=== PATIENT | female | born 1985 | race Two or more races ===

== ENCOUNTER → 2016-09-10 | Outpatient (CLI) | payer SELFPAY ==
[2015-09-16 05:23] VITALS: BP 115/57
[~2016-09-10] MED LIST: IOHEXOL 240 MG/ML 50ML VIAL. PO ONE; IOHEXOL 300 MG/ML 75 ML VIAL IV ONE; PNV1TABL25 PO
--- NOTE | 2016-09-10 14:59 | RAD ---
INDICATION: Ventral abdominal wall hernia COMPARISON: None. TECHNIQUE: Axial CT images were obtained through the abdomen and pelvis with intravenous contrast. Coronal reformations were processed. FINDINGS: Abdomen: Chest Base: Partially imaged without gross abnormality. Vessels: No abdominal aortic aneurysm. Liver/Biliary: Low-attenuation of liver. Pancreas: No gross abnormality. Spleen: Normal. Kidneys/Adrenal: No hydronephrosis. GI: Appendix is not grossly dilated. No dilated loops of bowel suggest obstruction. There is a ventral abdominal wall hernia with loops of nonobstructed bowel extending into it. The hernia neck measures approximately 8 cm and the hernia sac measures approximately 97 x 70 mm Pelvis: Bladder: Partially distended without gross abnormality. 22 mm cystic structure left adnexa. IMPRESSION: 1. Ventral abdominal wall hernia is identified with loops of bowel extending into it. There is also some trace edema and fluid within it. 2. Small fat-containing umbilical hernia. 3. There is low-attenuation of liver. Nonspecific but can be seen with fatty infiltration. 4. Uterus has a bulbous appearance near the fundus. Cannot exclude fibroid. There is also small cystic structure in left adnexa, could be dominant follicle. PQRS Compliance Statement: One or more of the following individualized dose reduction techniques were utilized for this examination: 1. Automated exposure control 2. Adjustment of the mA and/or kV according to patient size 3. Use of iterative reconstruction technique
== END | disposition home or self-care (01) ==
LOC: CT 11:19
PROVIDERS: ATTEND Specialist
DX: D25.9 Leiomyoma of uterus, unspecified (principal); K42.9 Umbilical hernia without obstruction or gangrene; N32.89 Other specified disorders of bladder
CPT/HCPCS: 74177; Q9966; Q9967

== ENCOUNTER 2016-11-15 10:04 | Observation (INO) | payer SELFPAY ==
[~2016-11-15] VITALS: Ht 157.5 cm; Wt 120.2 kg
[~2016-11-15 10:04] MED LIST changes: +FENTANYL PF 100 MCG/2 ML VIAL. IV PRN; +HYDROMORPHONE 2 MG/ML VIAL. IV PRN; -IOHEXOL 240 MG/ML 50ML VIAL. PO ONE; -IOHEXOL 300 MG/ML 75 ML VIAL IV ONE; +IV RINGERS,LACTATED 1000ML 1,000 ML IV SCH; +LIDOCAINE 1% 1 ML SYRINGE. ID PRN; +MORPHINE SULFATE 2 MG/ML DISP.SYRIN. IV PRN; +ONDANSETRON PF 4 MG/2 ML VIAL. IV PRN; +PROCHLORPERAZINE 10 MG/2 ML VIAL. IV PRN
[2016-11-15 10:37] LABS: NEG OBC UR NEG; POS OBC UR POS
[2016-11-15 10:58] LABS: BASO # 0.1 x10^3/uL (0.0-0.2); BASO % 1 % (0-3); EOS % 3 % (0-3); HEMATOCRIT 32.9 % (36.0-47.0); LYMPH # 2.4 x10^3/uL (1.0-4.8); LYMPH % 25 % (24-48); MEAN CORPUSCULAR HEMOGLOBIN 26 pg (25-35); MEAN CORPUSCULAR HGB CONC 34 g/dL (31-37); MEAN CORPUSCULAR VOLUME 77 fL (79-100); MONO % 4 % (0-9); NEUT % 67 % (31-73); PLATELET COUNT 258 x10^3/uL (140-400); RED BLOOD COUNT 4.29 x10^6/uL (3.50-5.40); RED CELL DISTRIBUTION WIDTH 15.8 % (11.5-14.5); WHITE BLOOD COUNT 9.5 x10^3/uL (4.0-11.0)
[2016-11-15 11:06] LABS: INR 1.1 (0.8-1.1); PROTHROMBIN TIME PATIENT 13.5 SEC (11.7-14.0)
[2016-11-15 11:08] LABS: CALCIUM 8.6 mg/dL (8.5-10.1); CREATININE 0.7 mg/dL (0.6-1.0); POTASSIUM 3.9 mmol/L (3.5-5.1)
[2016-11-15 11:16] LABS: ALBUMIN 3.3 g/dL (3.4-5.0); ALBUMIN/GLOBULIN RATIO 0.8 (1.0-1.7); TOTAL BILIRUBIN 0.6 mg/dL (0.2-1.0); TOTAL PROTEIN 7.6 g/dL (6.4-8.2)
[2016-11-15] MEDS ORDERED: SEVOFLURANE 61 TO 120 MINUTES. IH ONE (11:40)
[2016-11-15] MEDS ORDERED: MIDAZOLAM HCL/PF 2 MG/2 ML VIAL. ONE ×2 (11:42→11:59)
[2016-11-15] MEDS ORDERED: ROCURONIUM 50 MG/5 ML VIAL. ONE ×2 (11:42→13:19)
[2016-11-15] MEDS ORDERED: NEOSTIGMINE METHYLSULFATE 5 MG/5 ML SYRINGE. ONE (11:42)
[2016-11-15] MEDS ORDERED: DEXAMETHASONE SOD PHOS 20 MG/5 ML VIAL. ONE (11:42)
[2016-11-15] MEDS ORDERED: FENTANYL PF 100 MCG/2 ML VIAL. ONE ×2 (11:42→14:17)
[2016-11-15] MEDS ORDERED: GLYCOPYRROLATE 1 MG/5 ML VIAL. ONE (11:42)
[2016-11-15] MEDS ORDERED: KETOROLAC 60 MG/2 ML INJ FOR OR. ONE (11:42)
[2016-11-15] MEDS ORDERED: PROPOFOL 20 ML IV ONE (11:42)
[2016-11-15] MEDS ORDERED: ONDANSETRON PF 4 MG/2 ML VIAL. ONE (11:43)
[2016-11-15] MEDS ORDERED: LIDOCAINE 2% 100 MG/5 ML SYRINGE. ONE (11:43)
[2016-11-15] MEDS ORDERED: BUPIVACAINE MPF 0.5% 30 ML VIAL. ONE (11:59)
--- NOTE | 2016-11-15 12:00 | PDOC ---
SURGICAL PROGRESS NOTE Subjective Op Note: Surgeon............................................Tyler Pre op diag.......................................incarcerate ventral/ incisional hernia Post op diag.....................................same Anesthesia.......................................general Procedure........................................Repair incarcerated Incisional hernia with mesh Drains.............................................none Blood loss.......................................30cc Fluids.............................................see anesthesia sheet Condition........................................satisfactory Vital Signs Vital Signs Date Time Temp Pulse Resp B/P Pulse Ox O2 Delivery O2 Flow Rate FiO2 11/15/16 10:35 97.3 72 20 138/56 98 Room Air 97.3 Labs Laboratory Tests Test 11/15/16 10:21 11/15/16 10:50 Urine Test Negative (NEG) White Blood Count 9.5x10^3/uL (4.0-11.0) Red Blood Count 4.29x10^6/uL (3.50-5.40) Hemoglobin 11.0g/dL (12.0-15.5) Hematocrit 32.9% (36.0-47.0) Mean Corpuscular Volume 77fL (79-100) Mean Corpuscular Hemoglobin 26pg (25-35) Mean Corpuscular Hemoglobin Concent 34g/dL (31-37) Red Cell Distribution Width 15.8% (11.5-14.5) Platelet Count 258x10^3/uL (140-400) Neutrophils (%) (Auto) 67% (31-73) Lymphocytes (%) (Auto) 25% (24-48) Monocytes (%) (Auto) 4% (0-9) Eosinophils (%) (Auto) 3% (0-3) Basophils (%) (Auto) 1% (0-3) Neutrophils # (Auto) 6.4x10^3uL (1.8-7.7) Lymphocytes # (Auto) 2.4x10^3/uL (1.0-4.8) Monocytes # (Auto) 0.4x10^3/uL (0.0-1.1) Eosinophils # (Auto) 0.3x10^3/uL (0.0-0.7) Basophils # (Auto) 0.1x10^3/uL (0.0-0.2) Prothrombin Time 13.5SEC (11.7-14.0) Prothromb Time International Ratio 1.1 (0.8-1.1) Sodium Level 140mmol/L (136-145) Potassium Level 3.9mmol/L (3.5-5.1) Chloride Level 104mmol/L (98-107) Carbon Dioxide Level 29mmol/L (21-32) Anion Gap 7 (6-14) Blood Urea Nitrogen 10mg/dL (7-20) Creatinine 0.7mg/dL (0.6-1.0) Estimated GFR (Cockcroft-Gault) 97.0 BUN/Creatinine Ratio 14 (6-20) Glucose Level 108mg/dL (70-99) Calcium Level 8.6mg/dL (8.5-10.1) Total Bilirubin 0.6mg/dL (0.2-1.0) Aspartate Amino Transf (AST/SGOT) 35U/L (15-37) Alanine Aminotransferase (ALT/SGPT) 44U/L (14-59) Alkaline Phosphatase 96U/L (46-116) Total Protein 7.6g/dL (6.4-8.2) Albumin 3.3g/dL (3.4-5.0) Albumin/Globulin Ratio 0.8 (1.0-1.7) Laboratory Tests Test 11/15/16 10:21 11/15/16 10:50 Urine Test Negative (NEG) White Blood Count 9.5x10^3/uL (4.0-11.0) Red Blood Count 4.29x10^6/uL (3.50-5.40) Hemoglobin 11.0g/dL (12.0-15.5) Hematocrit 32.9% (36.0-47.0) Mean Corpuscular Volume 77fL (79-100) Mean Corpuscular Hemoglobin 26pg (25-35) Mean Corpuscular Hemoglobin Concent 34g/dL (31-37) Red Cell Distribution Width 15.8% (11.5-14.5) Platelet Count 258x10^3/uL (140-400) Neutrophils (%) (Auto) 67% (31-73) Lymphocytes (%) (Auto) 25% (24-48) Monocytes (%) (Auto) 4% (0-9) Eosinophils (%) (Auto) 3% (0-3) Basophils (%) (Auto) 1% (0-3) Neutrophils # (Auto) 6.4x10^3uL (1.8-7.7) Lymphocytes # (Auto) 2.4x10^3/uL (1.0-4.8) Monocytes # (Auto) 0.4x10^3/uL (0.0-1.1) Eosinophils # (Auto) 0.3x10^3/uL (0.0-0.7) Basophils # (Auto) 0.1x10^3/uL (0.0-0.2) Prothrombin Time 13.5SEC (11.7-14.0) Prothromb Time International Ratio 1.1 (0.8-1.1) Sodium Level 140mmol/L (136-145) Potassium Level 3.9mmol/L (3.5-5.1) Chloride Level 104mmol/L (98-107) Carbon Dioxide Level 29mmol/L (21-32) Anion Gap 7 (6-14) Blood Urea Nitrogen 10mg/dL (7-20) Creatinine 0.7mg/dL (0.6-1.0) Estimated GFR (Cockcroft-Gault) 97.0 BUN/Creatinine Ratio 14 (6-20) Glucose Level 108mg/dL (70-99) Calcium Level 8.6mg/dL (8.5-10.1) Total Bilirubin 0.6mg/dL (0.2-1.0) Aspartate Amino Transf (AST/SGOT) 35U/L (15-37) Alanine Aminotransferase (ALT/SGPT) 44U/L (14-59) Alkaline Phosphatase 96U/L (46-116) Total Protein 7.6g/dL (6.4-8.2) Albumin 3.3g/dL (3.4-5.0) Albumin/Globulin Ratio 0.8 (1.0-1.7) SCOTT OLGUIN MD Nov 15, 2016 12:00
[2016-11-15] MEDS ORDERED: BUPIVACAINE-EPI 0.5%-1:200000 50 ML VIAL. ONE (12:24)
[2016-11-15] MEDS: CEFAZOLIN 1GM IVPB FOR OMNI 50 ML IV PRN ×2 (12:35→14:00)
[2016-11-15] MEDS: METRONIDAZOLE 500mg PREMIX 100 ML IV PRN ×2 (12:51→14:24)
[2016-11-15] MEDS ORDERED: PHENYLEPHRINE in 0.9% NACL PF 1 MG/10 ML DISP.SYRIN. IV ONE (12:54)
[2016-11-15] MEDS ORDERED: METRONIDAZOLE PREMIX 500 MG/100 ML BAG. IV ONE (13:42)
[2016-11-15] MEDS ORDERED: CEFAZOLIN 1GM IVPB FOR OMNI 50 ML IV ONE ×2 (13:42→14:15)
[2016-11-15] MEDS ORDERED: METRONIDAZOLE 500mg PREMIX 100 ML IV ONE (14:15)
[2016-11-15] MEDS ORDERED: DIPHENHYDRAMINE 50 MG/ML VIAL. IV PRN (14:15)
[2016-11-15] MEDS ORDERED: NALOXONE 0.4 MG/ML VIAL. IV PRN (14:15)
[2016-11-15] MEDS ORDERED: NALBUPHINE 10 MG/ML AMPUL. IV PRN (14:15)
[2016-11-15] MEDS ORDERED: DESFLURANE > 120 MINUTES IH ONE (14:34)
[2016-11-15] MEDS: ROPIVACAINE 0.5% EP PRN ×3 (15:54→23:17)
[2016-11-15] MEDS: FENTANYL EP PRN ×3 (15:54→23:17)
[2016-11-15] MEDS: NORMAL SALINE EP PRN ×3 (15:54→23:17)
[2016-11-15] MEDS: [UNRECOGNIZED DRUG - OTHER] EP PRN ×3 (15:54→23:17)
[2016-11-15] MEDS ORDERED: KETOROLAC 15 MG/ML VIAL. IV PRN (16:00)
[2016-11-15] MEDS ORDERED: 0.9 % SODIUM CHLORIDE 10 ML DISP.SYRIN. IV PRN (16:00)
[2016-11-15 17:18] VITALS: BP 105/54
[2016-11-15] MEDS: POTASSIUM CL 20MEQ-0.45% NACL 1,000 ML IV SCH ×2 (17:47→20:46)
[2016-11-15 19:15] VITALS: BP 118/60
[2016-11-15 20:31] VITALS: BP 115/54
[2016-11-15] MEDS: FAMOTIDINE 20 MG/2 ML VIAL IVP SCH (20:46)
[2016-11-15] MEDS: CEFAZOLIN SODIUM 1 GM in IV NORMAL SALINE 50ML 50 ML IV SCH (20:46)
[2016-11-15 21:18] VITALS: BP 116/57
[2016-11-15 23:01] VITALS: BP 113/56
[2016-11-16] VITALS (7 sets, daily range): BP systolic 97–145; BP diastolic 52–69
--- NOTE | 2016-11-16 04:15 | OP ---
DATE OF SURGERY: 11/15/2016 SURGEON: Shane Olguin MD PREOPERATIVE DIAGNOSIS: Incarcerated ventral hernia. POSTOPERATIVE DIAGNOSIS: Incarcerated ventral hernia. ANESTHESIA: General. PROCEDURE: Repair of incarcerated ventral hernia with Seprafilm coated ____ mesh. TECHNIQUE: Under general anesthesia, the patient was properly prepped and draped in the routine fashion. The hernia was below the umbilicus and midway between the pubis and the umbilicus in the midline where the patient had had a section 3 times. No sutures were found during the procedure from the old surgical site. An incision was made using a 15 blade making certain not to go through the skin that was very tenuous and thin at the portion where the hernia had become protruding. We were very careful as we knew we quickly entered the peritoneal cavity and did not want any intraabdominal contents as she did have bowel in the hernia. We slowly made an incision, got down to the sac and opened it after we had opened the skin. We then were able to see that there were very minimum adhesions to the sac and this was opened widely. The patient was quite obese and as such, initially, we could not feel the fascia as she had omentum and other fat tissue there that was adherent. We had to slowly dissect this using sharp dissection with Metzenbaum scissors and slowly pulled this away and we were able to identify the fascia, which was deep in this very obese patient, deep in the panniculus. We grabbed the fascia making certain not to injure any intraabdominal contents in all the 4 quadrants, pulled it up and we were able to then see that we could approximate this without difficulties. The dissection was quite difficult as she had a lot of old scar tissue there and the omentum had to be freed and we slowly freed everything from the anterior abdominal wall. We placed the 11 x 14 piece of mesh in the abdominal cavity with the Seprafilm surface inferior after we had placed the omentum over the bowel, so that the only thing that would touch this would be the omentum. We then stapled it in place using a tacker and then used 0 Prolene suture to reinforce and sutured the mesh to the anterior abdominal wall. The resultant defect was then approximated as we had used #1 Prolene interrupted sutures to approximate the fascia in the midline. As stated before, we were hernandez that there was not much tension. Having done this, we now had the hernia repaired, we injected 0.5% Marcaine and epinephrine in the fascia. SubQ was a problem closing as there was a huge sac that had been there. We had to resect some of the very thin skin along the edges and did resect this using a 15 blade. We then placed a large Tyler drain and we brought it out superiorly as we did not want it to be in the pelvis where there might be some contamination. We laid it deep in the wound and sutured it in place to the skin using 2-0 silk and then applied the bulb. The subQ was then approximated with interrupted 3-0 and 4-0 Vicryl. The skin was closed using a skin stapler and a sterile dressing was applied. The procedure was now terminated as the hernia had been repaired and all was well. ESTIMATED BLOOD LOSS: Probably 25-30 mL. FLUIDS GIVEN: Can be obtained from the anesthesia sheet. DRAINS: Large Tyler drain in the subQ. CONDITION OF THE PATIENT: Satisfactory as she is returned to the recovery room. SHANE OLGUIN MD DR: MAYA/vanessa JOB#: [id number] / [id number]
[2016-11-16] MEDS: CEFAZOLIN SODIUM 1 GM in IV NORMAL SALINE 50ML 50 ML IV SCH ×3 (05:24→21:24)
[2016-11-16 05:27] LABS: BASO % 0 % (0-3); EOS % 0 % (0-3); HEMATOCRIT 32.4 % (36.0-47.0); HEMOGLOBIN 10.3 g/dL (12.0-15.5); LYMPH # 1.1 x10^3/uL (1.0-4.8); LYMPH % 6 % (24-48); MEAN CORPUSCULAR HEMOGLOBIN 25 pg (25-35); MEAN CORPUSCULAR HGB CONC 32 g/dL (31-37); MEAN CORPUSCULAR VOLUME 78 fL (79-100); MONO % 3 % (0-9); NEUT % 91 % (31-73); PLATELET COUNT 247 x10^3/uL (140-400); RED BLOOD COUNT 4.13 x10^6/uL (3.50-5.40); RED CELL DISTRIBUTION WIDTH 15.7 % (11.5-14.5); WHITE BLOOD COUNT 17.4 x10^3/uL (4.0-11.0)
[2016-11-16 05:50] LABS: CALCIUM 8.3 mg/dL (8.5-10.1); CREATININE 0.8 mg/dL (0.6-1.0); GFR 83.1; POTASSIUM 4.8 mmol/L (3.5-5.1)
[2016-11-16] MEDS: NORMAL SALINE EP PRN ×2 (07:18→17:45)
[2016-11-16] MEDS: ROPIVACAINE 0.5% EP PRN ×2 (07:18→17:45)
[2016-11-16] MEDS: FENTANYL EP PRN ×2 (07:18→17:45)
[2016-11-16] MEDS: [UNRECOGNIZED DRUG - OTHER] EP PRN ×2 (07:18→17:45)
[2016-11-16 09:07] LABS: PLT ESTIMATE ADEQUATE (ADEQUATE)
--- NOTE | 2016-11-16 10:57 | PDOC ---
SURGICAL PROGRESS NOTE Subjective POD#1 She is doing well without fever and with no pain. Look good and has excellent urine output as the urine is clear and normal color. Will ambulate and walk in senior and make certain the bnder is not tight when in bed. wound dry and without drainage and the Tyler drainage has been minimal. continue to Support and repeat lab and decrease IV fluid rate. Vital Signs Vital Signs Date Time Temp Pulse Resp B/P Pulse Ox O2 Delivery O2 Flow Rate FiO2 11/16/16 07:18 Nasal Cannula 2.0 11/16/16 07:00 97.7 64 18 115/52 97 97.7 I&O Intake and Output 11/16/16 07:00 Intake Total 2759 ml Output Total 1515 ml Balance 1244 ml Intake Oral 0 ml IV Total 2759 ml Output Urine Total 1450 ml Drainage Total 40 ml Estimated Blood Loss 25 ml Labs Laboratory Tests Test 11/15/16 10:21 11/15/16 10:50 11/16/16 04:30 Urine Test Negative (NEG) White Blood Count 9.5x10^3/uL (4.0-11.0) 17.4x10^3/uL (4.0-11.0) Red Blood Count 4.29x10^6/uL (3.50-5.40) 4.13x10^6/uL (3.50-5.40) Hemoglobin 11.0g/dL (12.0-15.5) 10.3g/dL (12.0-15.5) Hematocrit 32.9% (36.0-47.0) 32.4% (36.0-47.0) Mean Corpuscular Volume 77fL (79-100) 78fL (79-100) Mean Corpuscular Hemoglobin 26pg (25-35) 25pg (25-35) Mean Corpuscular Hemoglobin Concent 34g/dL (31-37) 32g/dL (31-37) Red Cell Distribution Width 15.8% (11.5-14.5) 15.7% (11.5-14.5) Platelet Count 258x10^3/uL (140-400) 247x10^3/uL (140-400) Neutrophils (%) (Auto) 67% (31-73) 91% (31-73) Lymphocytes (%) (Auto) 25% (24-48) 6% (24-48) Monocytes (%) (Auto) 4% (0-9) 3% (0-9) Eosinophils (%) (Auto) 3% (0-3) 0% (0-3) Basophils (%) (Auto) 1% (0-3) 0% (0-3) Neutrophils # (Auto) 6.4x10^3uL (1.8-7.7) 15.9x10^3uL (1.8-7.7) Lymphocytes # (Auto) 2.4x10^3/uL (1.0-4.8) 1.1x10^3/uL (1.0-4.8) Monocytes # (Auto) 0.4x10^3/uL (0.0-1.1) 0.4x10^3/uL (0.0-1.1) Eosinophils # (Auto) 0.3x10^3/uL (0.0-0.7) 0.0x10^3/uL (0.0-0.7) Basophils # (Auto) 0.1x10^3/uL (0.0-0.2) 0.0x10^3/uL (0.0-0.2) Prothrombin Time 13.5SEC (11.7-14.0) Prothromb Time International Ratio 1.1 (0.8-1.1) Sodium Level 140mmol/L (136-145) 138mmol/L (136-145) Potassium Level 3.9mmol/L (3.5-5.1) 4.8mmol/L (3.5-5.1) Chloride Level 104mmol/L (98-107) 104mmol/L (98-107) Carbon Dioxide Level 29mmol/L (21-32) 24mmol/L (21-32) Anion Gap 7 (6-14) 10 (6-14) Blood Urea Nitrogen 10mg/dL (7-20) 10mg/dL (7-20) Creatinine 0.7mg/dL (0.6-1.0) 0.8mg/dL (0.6-1.0) Estimated GFR (Cockcroft-Gault) 97.0 83.1 BUN/Creatinine Ratio 14 (6-20) Glucose Level 108mg/dL (70-99) 126mg/dL (70-99) Calcium Level 8.6mg/dL (8.5-10.1) 8.3mg/dL (8.5-10.1) Total Bilirubin 0.6mg/dL (0.2-1.0) Aspartate Amino Transf (AST/SGOT) 35U/L (15-37) Alanine Aminotransferase (ALT/SGPT) 44U/L (14-59) Alkaline Phosphatase 96U/L (46-116) Total Protein 7.6g/dL (6.4-8.2) Albumin 3.3g/dL (3.4-5.0) Albumin/Globulin Ratio 0.8 (1.0-1.7) Segmented Neutrophils % 90% (35-66) Band Neutrophils % 5% (0-9) Lymphocytes % 5% (24-48) Platelet Estimate Adequate (ADEQUATE) Laboratory Tests Test 11/16/16 04:30 White Blood Count 17.4x10^3/uL (4.0-11.0) Red Blood Count 4.13x10^6/uL (3.50-5.40) Hemoglobin 10.3g/dL (12.0-15.5) Hematocrit 32.4% (36.0-47.0) Mean Corpuscular Volume 78fL (79-100) Mean Corpuscular Hemoglobin 25pg (25-35) Mean Corpuscular Hemoglobin Concent 32g/dL (31-37) Red Cell Distribution Width 15.7% (11.5-14.5) Platelet Count 247x10^3/uL (140-400) Neutrophils (%) (Auto) 91% (31-73) Lymphocytes (%) (Auto) 6% (24-48) Monocytes (%) (Auto) 3% (0-9) Eosinophils (%) (Auto) 0% (0-3) Basophils (%) (Auto) 0% (0-3) Neutrophils # (Auto) 15.9x10^3uL (1.8-7.7) Lymphocytes # (Auto) 1.1x10^3/uL (1.0-4.8) Monocytes # (Auto) 0.4x10^3/uL (0.0-1.1) Eosinophils # (Auto) 0.0x10^3/uL (0.0-0.7) Basophils # (Auto) 0.0x10^3/uL (0.0-0.2) Segmented Neutrophils % 90% (35-66) Band Neutrophils % 5% (0-9) Lymphocytes % 5% (24-48) Platelet Estimate Adequate (ADEQUATE) Sodium Level 138mmol/L (136-145) Potassium Level 4.8mmol/L (3.5-5.1) Chloride Level 104mmol/L (98-107) Carbon Dioxide Level 24mmol/L (21-32) Anion Gap 10 (6-14) Blood Urea Nitrogen 10mg/dL (7-20) Creatinine 0.8mg/dL (0.6-1.0) Estimated GFR (Cockcroft-Gault) 83.1 Glucose Level 126mg/dL (70-99) Calcium Level 8.3mg/dL (8.5-10.1) Problem List Problems Medical Problems: (1) Ventral hernia with bowel obstruction Status: Acute Problems: SCOTT OLGUIN MD Nov 16, 2016 10:57
[2016-11-16] MEDS: FAMOTIDINE 20 MG/2 ML VIAL IVP SCH ×2 (10:59→21:24)
[2016-11-16] MEDS: ONDANSETRON PF 4 MG/2 ML VIAL. IV PRN (11:56)
[2016-11-16] MEDS: POTASSIUM CL 20MEQ-0.45% NACL 1,000 ML IV SCH ×2 (13:43→23:00)
[2016-11-17] MEDS: POTASSIUM CL 20MEQ-0.45% NACL 1,000 ML IV SCH ×3 (02:04→14:06)
[2016-11-17] MEDS: [UNRECOGNIZED DRUG - OTHER] EP PRN ×3 (02:09→18:21)
[2016-11-17] MEDS: ROPIVACAINE 0.5% EP PRN ×3 (02:09→18:21)
[2016-11-17] MEDS: FENTANYL EP PRN ×3 (02:09→18:21)
[2016-11-17] MEDS: NORMAL SALINE EP PRN ×3 (02:09→18:21)
[2016-11-17 03:00] VITALS: BP 91/64
[2016-11-17 05:28] LABS: BASO % 0 % (0-3); EOS % 0 % (0-3); HEMATOCRIT 30.4 % (36.0-47.0); HEMOGLOBIN 9.7 g/dL (12.0-15.5); LYMPH # 2.4 x10^3/uL (1.0-4.8); LYMPH % 18 % (24-48); MEAN CORPUSCULAR HEMOGLOBIN 25 pg (25-35); MEAN CORPUSCULAR HGB CONC 32 g/dL (31-37); MEAN CORPUSCULAR VOLUME 79 fL (79-100); MONO % 6 % (0-9); NEUT % 76 % (31-73); PLATELET COUNT 225 x10^3/uL (140-400); RED BLOOD COUNT 3.83 x10^6/uL (3.50-5.40); WHITE BLOOD COUNT 13.4 x10^3/uL (4.0-11.0)
[2016-11-17 05:46] LABS: CALCIUM 8.3 mg/dL (8.5-10.1); CREATININE 0.9 mg/dL (0.6-1.0); GFR 72.6; POTASSIUM 4.4 mmol/L (3.5-5.1)
[2016-11-17] MEDS: CEFAZOLIN SODIUM 1 GM in IV NORMAL SALINE 50ML 50 ML IV SCH ×3 (05:55→22:05)
[2016-11-17 07:00] VITALS: BP 114/59
[2016-11-17] MEDS: FAMOTIDINE 20 MG/2 ML VIAL IVP SCH ×2 (08:14→22:07)
[2016-11-17] MEDS: ONDANSETRON PF 4 MG/2 ML VIAL. IV PRN (10:27)
--- NOTE | 2016-11-17 10:59 | PDOC ---
SURGICAL PROGRESS NOTE Subjective POD#3 Continues to do well. Wound without complication and has minmal drainage per the Tyler drain. WBC down and lab otherwise OK. Some nausea but no emesis and she has has "stomach Growling" but no flatus yet. Will not start po liquids yet and await GI function. Continue to support and hope to feed Saturday and likely home in 1-2 days. Vital Signs Vital Signs Date Time Temp Pulse Resp B/P Pulse Ox O2 Delivery O2 Flow Rate FiO2 11/17/16 10:43 16 99 Nasal Cannula 2.0 11/17/16 07:00 97.8 61 114/59 97.8 I&O Intake and Output 11/17/16 07:00 Intake Total 762 ml Output Total 655 ml Balance 107 ml IV Total 762 ml Output Urine Total 600 ml Drainage Total 55 ml # Voids 3 Labs Laboratory Tests Test 11/16/16 04:30 11/17/16 03:40 11/17/16 03:45 White Blood Count 17.4x10^3/uL (4.0-11.0) 13.4x10^3/uL (4.0-11.0) Red Blood Count 4.13x10^6/uL (3.50-5.40) 3.83x10^6/uL (3.50-5.40) Hemoglobin 10.3g/dL (12.0-15.5) 9.7g/dL (12.0-15.5) Hematocrit 32.4% (36.0-47.0) 30.4% (36.0-47.0) Mean Corpuscular Volume 78fL (79-100) 79fL (79-100) Mean Corpuscular Hemoglobin 25pg (25-35) 25pg (25-35) Mean Corpuscular Hemoglobin Concent 32g/dL (31-37) 32g/dL (31-37) Red Cell Distribution Width 15.7% (11.5-14.5) 16.0% (11.5-14.5) Platelet Count 247x10^3/uL (140-400) 225x10^3/uL (140-400) Neutrophils (%) (Auto) 91% (31-73) 76% (31-73) Lymphocytes (%) (Auto) 6% (24-48) 18% (24-48) Monocytes (%) (Auto) 3% (0-9) 6% (0-9) Eosinophils (%) (Auto) 0% (0-3) 0% (0-3) Basophils (%) (Auto) 0% (0-3) 0% (0-3) Neutrophils # (Auto) 15.9x10^3uL (1.8-7.7) 10.2x10^3uL (1.8-7.7) Lymphocytes # (Auto) 1.1x10^3/uL (1.0-4.8) 2.4x10^3/uL (1.0-4.8) Monocytes # (Auto) 0.4x10^3/uL (0.0-1.1) 0.8x10^3/uL (0.0-1.1) Eosinophils # (Auto) 0.0x10^3/uL (0.0-0.7) 0.0x10^3/uL (0.0-0.7) Basophils # (Auto) 0.0x10^3/uL (0.0-0.2) 0.0x10^3/uL (0.0-0.2) Segmented Neutrophils % 90% (35-66) Band Neutrophils % 5% (0-9) Lymphocytes % 5% (24-48) Platelet Estimate Adequate (ADEQUATE) Sodium Level 138mmol/L (136-145) 140mmol/L (136-145) Potassium Level 4.8mmol/L (3.5-5.1) 4.4mmol/L (3.5-5.1) Chloride Level 104mmol/L (98-107) 105mmol/L (98-107) Carbon Dioxide Level 24mmol/L (21-32) 29mmol/L (21-32) Anion Gap 10 (6-14) 6 (6-14) Blood Urea Nitrogen 10mg/dL (7-20) 14mg/dL (7-20) Creatinine 0.8mg/dL (0.6-1.0) 0.9mg/dL (0.6-1.0) Estimated GFR (Cockcroft-Gault) 83.1 72.6 Glucose Level 126mg/dL (70-99) 96mg/dL (70-99) Calcium Level 8.3mg/dL (8.5-10.1) 8.3mg/dL (8.5-10.1) Laboratory Tests Test 11/17/16 03:40 11/17/16 03:45 Sodium Level 140mmol/L (136-145) Potassium Level 4.4mmol/L (3.5-5.1) Chloride Level 105mmol/L (98-107) Carbon Dioxide Level 29mmol/L (21-32) Anion Gap 6 (6-14) Blood Urea Nitrogen 14mg/dL (7-20) Creatinine 0.9mg/dL (0.6-1.0) Estimated GFR (Cockcroft-Gault) 72.6 Glucose Level 96mg/dL (70-99) Calcium Level 8.3mg/dL (8.5-10.1) White Blood Count 13.4x10^3/uL (4.0-11.0) Red Blood Count 3.83x10^6/uL (3.50-5.40) Hemoglobin 9.7g/dL (12.0-15.5) Hematocrit 30.4% (36.0-47.0) Mean Corpuscular Volume 79fL (79-100) Mean Corpuscular Hemoglobin 25pg (25-35) Mean Corpuscular Hemoglobin Concent 32g/dL (31-37) Red Cell Distribution Width 16.0% (11.5-14.5) Platelet Count 225x10^3/uL (140-400) Neutrophils (%) (Auto) 76% (31-73) Lymphocytes (%) (Auto) 18% (24-48) Monocytes (%) (Auto) 6% (0-9) Eosinophils (%) (Auto) 0% (0-3) Basophils (%) (Auto) 0% (0-3) Neutrophils # (Auto) 10.2x10^3uL (1.8-7.7) Lymphocytes # (Auto) 2.4x10^3/uL (1.0-4.8) Monocytes # (Auto) 0.8x10^3/uL (0.0-1.1) Eosinophils # (Auto) 0.0x10^3/uL (0.0-0.7) Basophils # (Auto) 0.0x10^3/uL (0.0-0.2) Problem List Problems Medical Problems: (1) Ventral hernia with bowel obstruction Status: Acute Problems: SCOTT OLGUIN MD Nov 17, 2016 10:59
[2016-11-17 11:00] VITALS: BP 125/64
[2016-11-17 15:00] VITALS: BP 122/59
--- NOTE | 2016-11-17 17:15 | HP ---
ADMIT DATE: 11/15/2016 HISTORY OF PRESENT ILLNESS: The patient comes in with a history of abdominal discomfort and pain. She has been diagnosed and had a mass in the lower abdomen for about a year. She has had 3 C-sections, and this is in the middle of the scars where this is. She has been having increasing pain. The mass gets bigger, and she has had a CT scan which shows ____. At any rate, she is doing relatively well now. PAST MEDICAL HISTORY: Shows normal childhood diseases. No ____ cancer, TB, or asthma. She takes no medicine for anything. PAST SURGICAL HISTORY: She has never had surgery other than the 3 C-sections with the last one being about a year ago. She has 1 child who is almost a year old. ALLERGIES: The patient has no allergies. MEDICATIONS: Takes no medicine for other diseases. SOCIAL HISTORY: She is . She does not smoke, drink, or use illicit drugs. FAMILY HISTORY: Noncontributory and not available. REVIEW OF SYSTEMS: The patient does not really speak Slovak. I had to do it through a family missile inspector, but she thoroughly understands Slovak, just cannot speak. PHYSICAL EXAMINATION: GENERAL: At any rate, the physical examination shows an obese female in no acute distress. HEAD, EYES, EARS, NOSE, AND THROAT: Grossly normal. CHEST: Clear bilaterally to auscultation. HEART: Had no murmurs, heaves, friction rubs, or thrills, and the rate was 72 beats minute and it was regular. BREASTS: Not examined. ABDOMEN: Soft, protuberant, had a scar of the lower midline where there was ____ bulge. I could not reduce it at this point. PELVIC: Not done. EXTREMITIES: Grossly normal. IMPRESSION: Incarcerated ventral hernia. It should be noted that she had questions about this time. We did not imply anything, but just asked, and she definitely says she is not planning on having children again. This will affect the mesh and method of repair. She understands that and says she is not having any more children. SCOTT OLGUIN MD DR: MAYA/vanessa JOB#: [id number] / [id number]
[2016-11-17 19:30] VITALS: BP 114/64
[2016-11-17 23:21] VITALS: BP 105/59
[2016-11-18] MEDS: POTASSIUM CL 20MEQ-0.45% NACL 1,000 ML IV SCH ×2 (01:53→11:00)
[2016-11-18] MEDS: FENTANYL EP PRN ×2 (01:57→09:36)
[2016-11-18] MEDS: [UNRECOGNIZED DRUG - OTHER] EP PRN ×2 (01:57→09:36)
[2016-11-18] MEDS: NORMAL SALINE EP PRN ×2 (01:57→09:36)
[2016-11-18] MEDS: ROPIVACAINE 0.5% EP PRN ×2 (01:57→09:36)
[2016-11-18 02:54] VITALS: BP 104/59
[2016-11-18 05:25] LABS: BASO # 0.1 x10^3/uL (0.0-0.2); BASO % 1 % (0-3); EOS % 3 % (0-3); HEMATOCRIT 32.2 % (36.0-47.0); HEMOGLOBIN 10.4 g/dL (12.0-15.5); LYMPH # 2.2 x10^3/uL (1.0-4.8); LYMPH % 22 % (24-48); MEAN CORPUSCULAR HEMOGLOBIN 25 pg (25-35); MEAN CORPUSCULAR HGB CONC 32 g/dL (31-37); MEAN CORPUSCULAR VOLUME 79 fL (79-100); MONO % 6 % (0-9); NEUT % 68 % (31-73); PLATELET COUNT 233 x10^3/uL (140-400); RED BLOOD COUNT 4.09 x10^6/uL (3.50-5.40); RED CELL DISTRIBUTION WIDTH 15.5 % (11.5-14.5); WHITE BLOOD COUNT 9.9 x10^3/uL (4.0-11.0)
[2016-11-18] MEDS: CEFAZOLIN SODIUM 1 GM in IV NORMAL SALINE 50ML 50 ML IV SCH (05:54)
[2016-11-18 06:12] LABS: ALBUMIN 2.9 g/dL (3.4-5.0); ALBUMIN/GLOBULIN RATIO 0.7 (1.0-1.7); CALCIUM 8.2 mg/dL (8.5-10.1); CREATININE 0.8 mg/dL (0.6-1.0); GFR 83.1; POTASSIUM 3.8 mmol/L (3.5-5.1); TOTAL BILIRUBIN 0.3 mg/dL (0.2-1.0); TOTAL PROTEIN 7.1 g/dL (6.4-8.2)
[2016-11-18 07:00] VITALS: BP 127/65
[2016-11-18] MEDS: FAMOTIDINE 20 MG/2 ML VIAL IVP SCH (07:42)
--- NOTE | 2016-11-18 10:43 | PDOC ---
SURGICAL PROGRESS NOTE Subjective POD#3 Doing well as she has flatus and normal GI function . Taking po without difficulty. Minimal drainage and drain removed. Dressing changed and wound healing without complication. Lab OK with normal WBC and no fever. Intruction given to patient and Nurse relative. Home today and will see in office 2016. Summary dictated. Will have anesthesia removed epidural. Vital Signs Vital Signs Date Time Temp Pulse Resp B/P Pulse Ox O2 Delivery O2 Flow Rate FiO2 11/18/16 09:51 16 97 Room Air 11/18/16 09:36 2.0 11/18/16 07:00 98.8 58 127/65 98.8 I&O Intake and Output 11/18/16 07:00 Intake Total 3120 ml Output Total 3 ml Balance 3117 ml Intake Oral 720 ml IV Total 1200 ml Other 1200 ml Drainage Total 3 ml # Voids 6 Labs Laboratory Tests Test 11/17/16 03:40 11/17/16 03:45 11/18/16 03:45 Sodium Level 140mmol/L (136-145) 139mmol/L (136-145) Potassium Level 4.4mmol/L (3.5-5.1) 3.8mmol/L (3.5-5.1) Chloride Level 105mmol/L (98-107) 102mmol/L (98-107) Carbon Dioxide Level 29mmol/L (21-32) 29mmol/L (21-32) Anion Gap 6 (6-14) 8 (6-14) Blood Urea Nitrogen 14mg/dL (7-20) 10mg/dL (7-20) Creatinine 0.9mg/dL (0.6-1.0) 0.8mg/dL (0.6-1.0) Estimated GFR (Cockcroft-Gault) 72.6 83.1 Glucose Level 96mg/dL (70-99) 109mg/dL (70-99) Calcium Level 8.3mg/dL (8.5-10.1) 8.2mg/dL (8.5-10.1) White Blood Count 13.4x10^3/uL (4.0-11.0) 9.9x10^3/uL (4.0-11.0) Red Blood Count 3.83x10^6/uL (3.50-5.40) 4.09x10^6/uL (3.50-5.40) Hemoglobin 9.7g/dL (12.0-15.5) 10.4g/dL (12.0-15.5) Hematocrit 30.4% (36.0-47.0) 32.2% (36.0-47.0) Mean Corpuscular Volume 79fL (79-100) 79fL (79-100) Mean Corpuscular Hemoglobin 25pg (25-35) 25pg (25-35) Mean Corpuscular Hemoglobin Concent 32g/dL (31-37) 32g/dL (31-37) Red Cell Distribution Width 16.0% (11.5-14.5) 15.5% (11.5-14.5) Platelet Count 225x10^3/uL (140-400) 233x10^3/uL (140-400) Neutrophils (%) (Auto) 76% (31-73) 68% (31-73) Lymphocytes (%) (Auto) 18% (24-48) 22% (24-48) Monocytes (%) (Auto) 6% (0-9) 6% (0-9) Eosinophils (%) (Auto) 0% (0-3) 3% (0-3) Basophils (%) (Auto) 0% (0-3) 1% (0-3) Neutrophils # (Auto) 10.2x10^3uL (1.8-7.7) 6.8x10^3uL (1.8-7.7) Lymphocytes # (Auto) 2.4x10^3/uL (1.0-4.8) 2.2x10^3/uL (1.0-4.8) Monocytes # (Auto) 0.8x10^3/uL (0.0-1.1) 0.6x10^3/uL (0.0-1.1) Eosinophils # (Auto) 0.0x10^3/uL (0.0-0.7) 0.3x10^3/uL (0.0-0.7) Basophils # (Auto) 0.0x10^3/uL (0.0-0.2) 0.1x10^3/uL (0.0-0.2) BUN/Creatinine Ratio 13 (6-20) Total Bilirubin 0.3mg/dL (0.2-1.0) Aspartate Amino Transf (AST/SGOT) 24U/L (15-37) Alanine Aminotransferase (ALT/SGPT) 33U/L (14-59) Alkaline Phosphatase 73U/L (46-116) Total Protein 7.1g/dL (6.4-8.2) Albumin 2.9g/dL (3.4-5.0) Albumin/Globulin Ratio 0.7 (1.0-1.7) Laboratory Tests Test 11/18/16 03:45 White Blood Count 9.9x10^3/uL (4.0-11.0) Red Blood Count 4.09x10^6/uL (3.50-5.40) Hemoglobin 10.4g/dL (12.0-15.5) Hematocrit 32.2% (36.0-47.0) Mean Corpuscular Volume 79fL (79-100) Mean Corpuscular Hemoglobin 25pg (25-35) Mean Corpuscular Hemoglobin Concent 32g/dL (31-37) Red Cell Distribution Width 15.5% (11.5-14.5) Platelet Count 233x10^3/uL (140-400) Neutrophils (%) (Auto) 68% (31-73) Lymphocytes (%) (Auto) 22% (24-48) Monocytes (%) (Auto) 6% (0-9) Eosinophils (%) (Auto) 3% (0-3) Basophils (%) (Auto) 1% (0-3) Neutrophils # (Auto) 6.8x10^3uL (1.8-7.7) Lymphocytes # (Auto) 2.2x10^3/uL (1.0-4.8) Monocytes # (Auto) 0.6x10^3/uL (0.0-1.1) Eosinophils # (Auto) 0.3x10^3/uL (0.0-0.7) Basophils # (Auto) 0.1x10^3/uL (0.0-0.2) Sodium Level 139mmol/L (136-145) Potassium Level 3.8mmol/L (3.5-5.1) Chloride Level 102mmol/L (98-107) Carbon Dioxide Level 29mmol/L (21-32) Anion Gap 8 (6-14) Blood Urea Nitrogen 10mg/dL (7-20) Creatinine 0.8mg/dL (0.6-1.0) Estimated GFR (Cockcroft-Gault) 83.1 BUN/Creatinine Ratio 13 (6-20) Glucose Level 109mg/dL (70-99) Calcium Level 8.2mg/dL (8.5-10.1) Total Bilirubin 0.3mg/dL (0.2-1.0) Aspartate Amino Transf (AST/SGOT) 24U/L (15-37) Alanine Aminotransferase (ALT/SGPT) 33U/L (14-59) Alkaline Phosphatase 73U/L (46-116) Total Protein 7.1g/dL (6.4-8.2) Albumin 2.9g/dL (3.4-5.0) Albumin/Globulin Ratio 0.7 (1.0-1.7) Problem List Problems Medical Problems: (1) Ventral hernia with bowel obstruction Status: Acute Problems: SCOTT OLGUIN MD Nov 18, 2016 10:43
[2016-11-18 11:00] VITALS: BP 139/72
[2016-11-18] MEDS ORDERED: DOCU-27 PO (12:51)
[2016-11-18] MEDS ORDERED: PSYL1PAC7 PO (12:52)
[2016-11-18] MEDS ORDERED: OXYC-244 PO (12:54)
--- NOTE | 2016-11-18 16:29 | DS ---
DATE OF DISCHARGE: 11/18/2016 HOSPITAL COURSE: The patient had surgery for repair of incarcerated difficult ventral hernia on 11/15/2016. She had an uneventful surgery with mesh put in place. For the first day and half, she did have an ileus and began to have flatus. She had no fever ____ white count is normal at this time and the lab is normal with ____ normal. She is discharged today, as she has been taking p.o. without difficulty. No nausea or vomiting. She has had flatus and abdomen is soft and she has no discomfort. The dressing is changed today. As there has been minimal drainage, the drain was removed and there are no complications, as the wound is healing satisfactorily. Wound was redressed. We will have the epidural removed and we will discharge the patient today. They know that I will see her in about 9 days in the office and she will call should she have any problems in the interim. They also known not to do any strenuous activity and she has had to wear the abdominal binder when she is out of bed, tight, but when she is in bed, it will be off or loose. They will change the dressing p.r.n. and she may shower. Her relative is an RN and will be helping her also. IMPRESSION: Incarcerated ventral hernia. SCOTT OLGUIN MD DR: MAYA/vanessa JOB#: [id number] / [id number]
== END 2016-11-18 14:10 | disposition home or self-care (01) ==
LOC: SURG 10:04 → 4 NORTH 16:00
PROVIDERS: ADMIT Specialist; ATTEND Specialist
DX: K43.6 Other and unspecified ventral hernia with obstruction, without gangrene (principal); K56.7 Ileus, unspecified
CPT/HCPCS: 36415; 49561; 49568; 80048; 80053; 81025; 85007; 85027; 85610; 96365; 96375; 96376; A4215; G0378; G0379; J0690; J0780; J1100; J1885; J2250; J2370; J2405; J2704; J2710; J2795; J3010; J3490; J7120; S0028